=== PATIENT | female | born 1970 | race African-American/Black ===

== ENCOUNTER 2023-05-18 10:13 | Emergency (ER) | payer OTHER, MEDICAID, SELFPAY ==
[2023-05-18 10:32] VITALS: BP 139/84; PULSE 78; RESP 18; TEMP 36.7; O2SAT 100
--- NOTE | 2023-05-18 11:04 | ED.FEMALEGU ---
HPI - Female Genitourinary General Chief complaint: Urogenital-Female Stated complaint: UTI Time Seen by Provider: 05/18/23 10:38 Source: patient and RN notes reviewed Mode of arrival: ambulatory Limitations: no limitations History of Present Illness HPI Narrative: Patient presents today complaining of urinary frequency and urgency with mild external itching. She was started on a prescription for Macrobid on 05/10/2023 with similar symptoms and states symptoms improved, but never fully resolved. Symptoms worsened again a few days ago. Denies dysuria, abdominal pain, fever, nausea vomiting, sweats or chills. Related Data Home Medications Medication Instructions Recorded Confirmed omeprazole 20 mg capsule,delayed mg 05/18/23 release Allergies Allergy/AdvReac Type Severity Reaction Status Date / Time Sulfa (Sulfonamide Allergy Difficulty Verified 05/18/23 10:42 Antibiotics) Breathing Review of Systems Review of Systems: CONSTITUTIONAL: Denies body aches, fever, chills, or sweats. EYES: Denies visual changes, redness, or discharge. ENT: Denies rhinorrhea, congestion, sore throat, or otalgia. CARDIOVASCULAR: Denies chest pain, palpitations, or edema. RESPIRATORY: Denies cough or dyspnea. GASTROINTESTINAL: Denies abdominal pain, nausea, vomiting, or diarrhea. GENITOURINARY: Denies dysuria or hematuria.+ frequency, urgency, vulvar itching SKIN: Denies rash, itching, or wounds. MUSCULOSKELETAL: Denies back pain, joint pain, or myalgia. NEUROLOGIC: Denies headache, numbness, tingling, or weakness. PSYCH: Denies depression or anxiety. PMFSH Comments At time of signature, I have reviewed and agree with nursing past medical, surgical, social and family history unless otherwise noted. Please see nursing chart for further information. There is no relevant family history pertinent to the presenting complaint Exam Narrative: GENERAL: Well-appearing, well-nourished, and in no acute distress. HEAD: Normocephalic, atraumatic. EYES: EOMI. No redness or drainage. Conjunctivae normal. ENT: Mucous membranes pink and moist. NECK: Normal AROM. CHEST: No respiratory distress. EXTREMITIES: Normal range of motion. No edema. SKIN: Warm, dry, no rash. Capillary refill normal. Normal skin turgor. NEURO: No focal deficits. Alert and oriented x3. Gait steady. PSYCH: Normal affect. No signs of depression or anxiety. Course Course Level of Care: Express Care Visit Vital Signs Vital signs: Vital Signs Temperature 98.1 F 05/18/23 10:32 Pulse Rate 78 05/18/23 10:32 Respiratory Rate 18 05/18/23 10:32 Blood Pressure 139/84 05/18/23 10:32 Pulse Oximetry 100 05/18/23 10:32 Oxygen Delivery Room Air 05/18/23 10:32 Temperature 98.1 F 05/18/23 10:32 Pulse Rate 78 05/18/23 10:32 Respiratory Rate 18 05/18/23 10:32 Blood Pressure 139/84 05/18/23 10:32 Pulse Oximetry 100 05/18/23 10:32 Oxygen Delivery Room Air 05/18/23 10:32 Reviewed MDM - Female Genitourinary MDM Narrative Medical decision making narrative: Patient's urinalysis is consistent with UTI. She will be treated with Keflex and a dose of fluconazole. Culture pending. Anticipatory guidance given. Differential Diagnosis Differential diagnosis: Likely urinary tract infection, vaginitis and cystitis Lab Data Attestation: I reviewed the patient's lab results. Labs: Urine Glucose Negative Reference Range: Negative Urine Bilirubin Negative Reference Range: Negative Urine Ketone Negative Reference Range: Negative Urine Specific [place] 1.020 Reference Range:1.001-1.035 Urine Blood Trace
== END 2023-05-18 11:15 | disposition home or self-care (01) ==
PROVIDERS: Emergency Provider Nurse Practitioner; PCP Family Medicine
DX: N30.01 Acute cystitis with hematuria (principal); K21.9 Gastro-esophageal reflux disease without esophagitis
CPT/HCPCS: 81003; 87086; 99213; G0463